=== PATIENT | female | born 1985 | race Caucasian/White ===

== ENCOUNTER 2017-06-04 09:50 | Emergency (ER) | payer OTHER ==
[~2017-06-04] VITALS: Ht 160 cm; Wt 62.0 kg
[~2017-06-04 09:50] MED LIST: ACET325T33 PO; FAMO-96 PO
[2017-06-04 09:52] VITALS: Ht 160 cm; Wt 62.0 kg
[2017-06-04] MEDS ORDERED: ACETAMINOPHEN 500 MG TAB PO ONE (10:30)
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
--- NOTE | 2017-06-04 11:01 | RADRPT ---
PROCEDURE: XR Chest. CLINICAL INDICATION: chest pain TECHNIQUE: Single frontal view of the chest was obtained COMPARISON: None FINDINGS: The heart and mediastinum are within normal limits. The lungs are clear. There is no pleural effusion or pneumothorax. There is a healed left posterior eighth rib fracture. RPTAT: AA IMPRESSION: No acute disease. .Justen Darby MD, MD Date Time Electronically viewed and signed by .Justen Darby MD, on 06/04/2017 11:00 .S/
--- NOTE | 2017-06-04 11:02 | RADRPT ---
PROCEDURE: Pelvis x-ray CLINICAL INDICATION: Pain TECHNIQUE: Single AP view of the pelvis performed. COMPARISON: None FINDINGS: Normal mineralization, architecture and alignment. No fracture or osseous lesion identified. There are no significant degenerative changes. Unremarkable soft tissues. RPTAT: AA IMPRESSION: No acute fracture or subluxation. .Justen Darby MD, MD Date Time Electronically viewed and signed by .Justen Darby MD, on 06/04/2017 11:01 .S/
[2017-06-04] MEDS ORDERED: OXYC5CAP17 PO (12:12)
[2017-06-04] MEDS ORDERED: IBUPROFEN 800 MG TAB PO ONE (12:30)
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
[2017-06-04 12:57] VITALS: BP 128/84; PULSE 86; RESP 20; TEMP 98.3
== END 2017-06-04 12:58 | disposition home or self-care (01) ==
LOC: E/R 09:50
DX: S09.90XA Unspecified injury of head, initial encounter (principal); R40.2252 Coma scale, best verbal response, oriented, at arrival to emergency department; S20.212A Contusion of left front wall of thorax, initial encounter; S06.0X1A Concussion with loss of consciousness of 30 minutes or less, initial encounter; R40.2142 Coma scale, eyes open, spontaneous, at arrival to emergency department; R40.2362 Coma scale, best motor response, obeys commands, at arrival to emergency department; V49.40XA Driver injured in collision with unspecified motor vehicles in traffic accident, initial encounter
CPT/HCPCS: 70450; 71010; 72125; 72170; Z7502; Z7610